=== PATIENT | female | born 1965 | race African-American/Black ===

== ENCOUNTER 2023-10-23 13:44 | Day surgery (SDC) | payer OTHER ==
[2023-10-23] MEDS: LACTATED RINGERS 1,000 ML IV SCH (14:12)
[2023-10-23 15:02] VITALS: TEMP 97.6
[2023-10-23] MEDS ORDERED: PROPOFOL 10 MG/ML 20 ML VIAL IV ONE (15:47)
--- NOTE | 2023-10-23 16:12 | P.PCN ---
Date of Procedure: 10/23/23 Procedure(s) Performed: BRIEF HISTORY: Patient is a 58-year-old pleasant -[place] female scheduled for an elective colonoscopy as a part of Evaluation of prior history of colon polyps. PROCEDURE PERFORMED: Colonoscopy With biopsy. PREOPERATIVE DIAGNOSIS: History of colon polyps IV sedation per Anesthesia. PROCEDURE: After informed consent was obtained, the patient, was brought into the endoscopy unit. IV sedation was administered by Anesthesia under continuous monitoring. Digital rectal examination was normal. Initially the Olympus CF-160 flexible video colonoscope was then inserted in the rectum, gradually advanced into the cecum without any difficulty. Careful examination was performed as the scope was gradually being withdrawn. Ileocecal valve and the appendiceal orifice were visualized and appeared normal. Prep was excellent. Mucosa of the cecum, ascending colon, transverse colon, descending colon, Was normal. In the sigmoid there were 2 polyps measuring 3 mm and 5 mm in size that was removed by cold biopsy. Rest of thesigmoid colon, and rectum appeared normal. Moderate sigmoid diverticulosis.Retroflexion was performed in the rectum and no lesions were seen. The patient tolerated the procedure well. IMPRESSION: 3 mm and 5 mm sigmoid polyps status post cold biopsy Moderate sigmoid diverticulosis RECOMMENDATIONS: Findings of this examination were discussed with the patient As well as her family. She was advised to follow with the biopsy results. If the biopsy reveals adenoma,she can have a repeat colonoscopy in 5 years..
[2023-10-23 16:59] VITALS: BP 129/89; PULSE 88; RESP 20
== END 2023-10-23 16:48 | disposition home or self-care (01) ==
LOC: ORWHC2ENDO 13:44
PROVIDERS: ATTEND Internal Medicine Gastroenterology
DX: Z12.11 Encounter for screening for malignant neoplasm of colon (principal); K57.30 Diverticulosis of large intestine without perforation or abscess without bleeding; F31.9 Bipolar disorder, unspecified; Z86.010 Personal history of colon polyps; Z79.899 Other long term (current) drug therapy; Z88.7 Allergy status to serum and vaccine; Z88.8 Allergy status to other drugs, medicaments and biological substances
CPT/HCPCS: 88305; 45380; J2704